=== PATIENT | female | born 1975 | race Caucasian/White ===

== ENCOUNTER 2016-06-27 21:09 | Emergency (ER) | payer MEDICAID ==
[~2016-06-27] VITALS: Ht 167.6 cm; Wt 75.5 kg
[~2016-06-27 21:09] MED LIST: ACYC800T57 PO; PRED20TA PO
[2016-06-27 21:57] VITALS: Ht 167.6 cm; Wt 75.5 kg
[2016-06-28 02:13] LABS: ADD SCAN DIFF NO
[2016-06-28 02:23] LABS: BASOPHIL # 0.1 10^3/ul (0.0-0.1); BASOPHILS % 0.6 % (0.0-2.0); EOSINOPHILS # 0.4 10^3/ul (0.0-0.5); EOSINOPHILS % 4.3 % (0.0-7.0); HEMOGLOBIN 11.7 g/dl (12.0-16.0); LYMPHOCYTES % 31.4 % (15.0-51.0); MEAN CORPUSCULAR HEMOGLOBIN 31.3 pg (29.0-33.0); MEAN CORPUSCULAR HGB CONC 32.5 g/dl (32.0-37.0); MEAN CORPUSCULAR VOLUME 96.3 fl (82.0-101.0); MONOCYTE # 0.7 10^3/ul (0.3-0.9); MONOCYTES % 7.1 % (0.0-11.0); NEUTROPHIL # 5.3 10^3/ul (1.6-7.5); NEUTROPHILS % 56.4 % (39.0-77.0); PLATELET COUNT 304 10^3/UL (140-415); RED BLOOD COUNT 3.74 10^6/ul (4.20-5.40); RED CELL DISTRIBUTION WIDTH 12.4 % (11.5-14.5); WHITE BLOOD COUNT 9.5 10^3/ul (4.8-10.8)
[2016-06-28 02:36] LABS: ADD UMIC YES; URINE BILIRUBIN (Dip) NEGATIVE (NEGATIVE); URINE BLOOD (Dip) 2+ (NEGATIVE); URINE COLOR LT. YELLOW (YELLOW); URINE GLUCOSE (Dip) NEGATIVE (NEGATIVE); URINE KETONES (Dip) TRACE (NEGATIVE); URINE LEUKOCYTE ESTERASE (Dip) NEGATIVE (NEGATIVE); URINE NITRITE (Dip) POSITIVE (NEGATIVE); URINE TOTAL PROTEIN (Dip) NEGATIVE (NEGATIVE); URINE UROBILINOGEN (Dip) 0.2 E.U./dL (0.1-1.0)
[2016-06-28 02:54] LABS: BACTERIA,URINE FEW; SQUAMOUS EPITHELIAL CELL,UR OCCASIONAL
--- NOTE | 2016-06-28 03:38 | RADRPT ---
PROCEDURE: ULTRASOUND OBSTETRICAL CLINICAL INDICATION: 41-year-old female with vaginal bleeding. TECHNIQUE: Multiple sonographic images of the pelvis were obtained. The images were reviewed on a PACS workstation. COMPARISON: None. FINDINGS: There is a single intrauterine gestation. The mean sac diameter is 3.64 cm. There is a pole p resent with a crown-rump length of 2.11 cm. This yields an estimated gestational age of 8 weeks and 6 days. The estimated date of delivery is February 01, 2017. Cardiac activity is present at 168 adrian ts per minute. There is no evidence for free fluid. The ovaries were not visualized bilaterally. N o adnexal masses are noted. IMPRESSION: 1. Single viable intrauterine gestation of approximately 8 weeks 6 days. The estimated date of del beck is February 01, 2017. 2. The ovaries were not visualized. .Martínez Burgos MD, Date Time Electronically viewed and signed by .Martínez Burgos MD, on 06/28/2016 03:38 .M/
--- NOTE | 2016-06-28 03:42 | ERD ---
ER Documentation Chief Complaint Date/Time DATE: 06/28/16 TIME: 03:41 Chief Complaint VAG BLEED X 2 HRS POST INTERCOURSE ABOUT 9 WEEKS PREG HPI 41 year old female presents with CC of vaginal bleeding x 2 hours after having intercourse. States that she is 9 weeks . Denies pelvic pain, low back pain, dysuria, N/V, and fever. She states the bleeding is mild and she has not gone through one pad since onset. She reports Hx of one and one vaginal delivery. No other complaints at this time. She states she has been getting care, and has had no problems with her until now. ROS All systems reviewed and are negative except as per history of present illness. Medications Home Meds Active Scripts Acetaminophen* (Tylenol*) 325 Mg Tablet, 2 TAB PO Q6 Y for PAIN AND OR ELEVATED TEMP, #20 TAB Prov:Jayleen Elliott PA-C 06/28/16 Nitrofurantoin Monohyd Macrocr* (Macrobid*) 100 Mg Capsr, 100 MG PO BID for 5 Days, #10 CAP Prov:Jayleen Elliott PA-C 06/28/16 Acyclovir* (Zovirax*) 800 Mg Tablet, 800 MG PO 5 TIMES DAILY for 7 Days, TAB Prov:MATHEW COPELAND 01/30/15 Prednisone* (Prednisone*) 20 Mg Tab, 60 MG PO DAILY for 5 Days, TAB Prov:MATHEW COPELAND 01/30/15 Allergies Allergies: Coded Allergies: No Known Allergy (Unverified , 06/27/16) PMhx/Soc History of Surgery: Yes ( section x 1) Anesthesia Reaction: No Hx Neurological Disorder: No Hx Respiratory Disorders: No Hx Cardiac Disorders: No Hx Psychiatric Problems: No Hx Miscellaneous Medical Probl: Yes (HTN) Hx Alcohol Use: No Hx Substance Use: No Hx Tobacco Use: No Smoking Status: Never smoker Physical Exam Vitals Physical Exam GENERAL: Non-toxic. No apparent signs of distress. HEENT: Atraumatic. Bilateral eyes are PERRL EOM intact. Normal conjunctiva, no injection. No eyelid or lower eyelid swelling noted. Nose: no nasal discharge. Throat: Oropharynx normal. Tongue pink and moist. No tonsillar swelling or tonsillar exudates. No lymphadenopathy. LUNGS: Clear to auscultation. No accessory muscle use. No wheezing, no crackles. No signs or symptoms of respiratory distress. HEART: Regular rate and rhythm. No murmurs, clicks, rubs or gallops. ABDOMEN: Soft, nontender and nondistended. Bowel sounds positive. No rebound or guarding. No gross peritoneal signs. No Gomes or McBurney point tenderness. No gross masses. BACK: No midline tenderness, no costovertebral tenderness. EXTREMITIES: No peripheral cyanosis or edema. No focal pain or notable trauma. Full range of motion. Good capillary refill. NEURO: The patient moves all 4 extremities with 5/5 strength. Cranial nerves are grossly intact. Normal mental status for age. Good muscle tone. SKIN: There is no apparent rash, petechiae, erythema or swelling. Good skin turgor. Result Diagram: 06/28/16 0202 Results 24 hrs Laboratory Tests Test 06/28/16 02:02 White Blood Count 9.510^3/ul Red Blood Count 3.7410^6/ul Hemoglobin 11.7g/dl Hematocrit 36.0% Mean Corpuscular Volume 96.3fl Mean Corpuscular Hemoglobin 31.3pg Mean Corpuscular Hemoglobin Concent 32.5g/dl Red Cell Distribution Width 12.4% Platelet Count 63367^3/UL Mean Platelet Volume 11.0fl Neutrophils % 56.4% Lymphocytes % 31.4% Monocytes % 7.1% Eosinophils % 4.3% Basophils % 0.6% Nucleated Red Blood Cells % 0.0/100WBC Neutrophils # 5.310^3/ul Lymphocytes # 3.010^3/ul Monocytes # 0.710^3/ul Eosinophils # 0.410^3/ul Basophils # 0.110^3/ul Nucleated Red Blood Cells # 0.010^3/ul Urine Color LT. YELLOW Urine Clarity CLEAR Urine pH 6.0 Urine Specific [place] 1.025 Urine Ketones TRACE Urine Nitrite POSITIVE Urine Bilirubin NEGATIVE Urine Urobilinogen 0.2 E.U./dL Urine Leukocyte Esterase NEGATIVE Urine Microscopic RBC 5-10/HPF Urine Microscopic WBC 5-10/HPF Urine Squamous Epithelial Cells OCCASIONAL Urine Bacteria FEW Urine Hemoglobin 2+ Urine Glucose NEGATIVE% Urine Total Protein NEGATIVE Beta HCG, Quantitative 82881.0mIU/ml .[place] [id number] Radiology Main Line: [phone] DIAGNOSTIC IMAGING REPORT Patient: SATURNINO BARRAGAN : 1975 Age: 41 Sex: F MR #: [id number] DOS: 06/28/16 0142 Ordering MD: Jayleen Elliott PA-C Location: [facility] Room/Bed: PROCEDURE: ULTRASOUND OBSTETRICAL CLINICAL INDICATION: 41-year-old female with vaginal bleeding. TECHNIQUE: Multiple sonographic images of the pelvis were obtained. The images were reviewed on a PACS workstation. COMPARISON: None. FINDINGS: There is a single intrauterine gestation. The mean sac diameter is 3.64 cm. There is a pole present with a crown-rump length of 2.11 cm. This yields an estimated gestational age of 8 weeks and 6 days. The estimated date of delivery is February 01, 2017. Cardiac activity is present at 168 beats per minute. There is no evidence for free fluid. The ovaries were not visualized bilaterally. No adnexal masses are noted. IMPRESSION: 1. Single viable intrauterine gestation of approximately 8 weeks 6 days. The estimated date of delivery is February 01, 2017. 2. The ovaries were not visualized. .Martínez Burgos MD, MD Date Time Electronically viewed and signed by .Martínez Burgos MD, on 06/28/2016 03:38 .M/ CC: Jayleen Elliott PA-C Procedures/MDM CBC: mild anemia of 11.7, likely due to related changes and not true blood loss since patient only reports spotting Beta hCG quant: 91,908, WNL for dates Rh type: O+, rhogam not needed UA: 2+ leukocyte esterase, and positive nitrites. Will treat for UTI, patient is afebrile without any complaint of flank pain and has no CVA tenderness. Pyelonephritis unlikely. US 1st trimester (interpretation by radiologist): IMPRESSION: 1. Single viable intrauterine gestation of approximately 8 weeks 6 days. The estimated date of delivery is February 01, 2017. 2. The ovaries were not visualized. I explained results to patient, IUP seen on US, beta hCG is within normal range per dates, UA is consistent with UTI. Will be treating patient for UTI and threatened , low suspicion for ectopic , miss , molar , pyelonephritis, and severe anemia of blood loss. Patient stable for discharge home and outpatient managment, advised to follow-up with OBGYN in 48 hours for repeat exam and possible w/u. Strict return precautions discussed. Departure Diagnosis: Primary Impression: Vaginal bleeding in patient at less than 20 weeks gestation Additional Impressions: Threatened UTI (urinary tract infection) Urinary tract infection type: site unspecified Hematuria presence: with hematuria Qualified Code: N39.0 - Urinary tract infection with hematuria, site unspecified Condition: Jayleen Richmond PA-C June 28, 2016 03:42
[2016-06-28] MEDS ORDERED: NITR-58 PO (04:22)
[2016-06-28] MEDS ORDERED: ACET325T33 PO (04:22)
== END 2016-06-28 04:30 | disposition home or self-care (01) ==
LOC: FTE 21:09
DX: O20.9 Hemorrhage in early pregnancy, unspecified (principal); O20.0 Threatened abortion; O23.11 Infections of bladder in pregnancy, first trimester; O10.011 Pre-existing essential hypertension complicating pregnancy, first trimester; Z3A.09 9 weeks gestation of pregnancy
CPT/HCPCS: 76801; 81001; 84702; 85025; 86900; 86901; Z7502; 81003

== ENCOUNTER 2017-01-20 09:51 | Inpatient (IN) | payer MEDICAID ==
[~2017-01-20] VITALS: Ht 167.6 cm; Wt 82.0 kg
[~2017-01-20 09:51] MED LIST changes: +ACET325T33 PO; +NITR-58 PO; +OXYTOCIN 30 UNITS/LR 500 ML BAG IV ONE
[2017-01-20 10:24] VITALS: Ht 167.6 cm; Wt 82.0 kg
[2017-01-20] MEDS: LACTATED RINGER'S 1,000 ML IV SCH ×3 (10:24→12:10)
[2017-01-20 10:25] VITALS: BP 136/81; PULSE 67; RESP 20
[2017-01-20] MEDS ORDERED: PREN-17 PO (10:29)
[2017-01-20 10:30] LABS: BASOPHILS % 0.5 % (0.0-2.0); EOSINOPHILS # 0.2 10^3/ul (0.0-0.5); EOSINOPHILS % 2.1 % (0.0-7.0); HEMATOCRIT 31.2 % (37.0-47.0); HEMOGLOBIN 10.7 g/dl (12.0-16.0); LYMPHOCYTES # 1.5 10^3/ul (0.8-2.9); LYMPHOCYTES % 19.3 % (15.0-51.0); MEAN CORPUSCULAR HEMOGLOBIN 31.5 pg (29.0-33.0); MEAN CORPUSCULAR HGB CONC 34.3 g/dl (32.0-37.0); MEAN CORPUSCULAR VOLUME 91.8 fl (82.0-101.0); MEAN PLATELET VOLUME 11.9 fl (7.4-10.4); MONOCYTE # 0.4 10^3/ul (0.3-0.9); MONOCYTES % 5.4 % (0.0-11.0); NEUTROPHIL # 5.7 10^3/ul (1.6-7.5); NEUTROPHILS % 71.7 % (39.0-77.0); PLATELET COUNT 231 10^3/UL (140-415); RED CELL DISTRIBUTION WIDTH 13.2 % (11.5-14.5)
[2017-01-20] MEDS ORDERED: MISOPROSTOL 200 MCG TAB PR PRN ×2 (10:30→17:00)
[2017-01-20] MEDS ORDERED: OXYTOCIN 30 UNITS/LR 500 ML IV PRN ×2 (10:30→17:00)
[2017-01-20] MEDS ORDERED: CEFAZOLIN 2 GM/50 ML (PMX) 50 ML IV SCH (10:30)
[2017-01-20] MEDS ORDERED: OXYTOCIN 30 UNITS/LR 500 ML IV SCH (10:30)
[2017-01-20] MEDS ORDERED: METHYLERGONOVINE 0.2 MG INJ IM PRN ×2 (10:30→17:00)
[2017-01-20] MEDS ORDERED: CARBOPROST 250 MCG INJ IM PRN ×2 (10:30→17:00)
[2017-01-20 10:49] LABS: INR 0.97
[2017-01-20 10:50] LABS: PARTIAL THROMBOPLASTIN TIME 27.4 Sec (25.0-35.0)
[2017-01-20] MEDS ORDERED: PHENYLephrine (100 MCG/ML) 5ML SYG ONE (13:18)
[2017-01-20] MEDS ORDERED: OXYTOCIN 10 UNIT INJ ONE (13:18)
[2017-01-20] MEDS ORDERED: ONDANSETRON 4 MG INJ ONE (13:18)
[2017-01-20] MEDS ORDERED: morphine SULFATE/PF (10 MG/10 ML) INJ ONE (13:18)
[2017-01-20 13:49] LABS: ALBUMIN 3.9 g/dl (3.3-4.9); ALBUMIN/GLOBULIN RATIO 1.14; BILIRUBIN,INDIRECT 0.4 mg/dl (0-1.1); BILIRUBIN,TOTAL 0.4 mg/dl (0.2-1.3); CALCIUM 8.7 mg/dl (8.4-10.2); CREATININE 0.63 mg/dl (0.44-1.00); POTASSIUM 3.9 mmol/L (3.5-5.1); TOTAL PROTEIN 7.3 g/dl (6.1-8.1); URIC ACID 3.6 mg/dl (3.1-7.9)
[2017-01-20] MEDS ORDERED: NALOXONE (0.4 MG/ML) INJ IV PRN (14:30)
[2017-01-20] MEDS ORDERED: ONDANSETRON 4 MG INJ IV PRN (14:30)
[2017-01-20] MEDS ORDERED: DIPHENHYDRAMINE 50 MG INJ IV PRN (14:30)
--- NOTE | 2017-01-20 14:43 | OPR ---
Operative Report Planned Procedure Free Text/Dictation 41 years old female 1 admitted at 39 weeks gestation with a history of previous being prepared to undergo repeat Procedure date Jan 20, 2017 Procedure(s) Repeat Performed by see signature line Cost Estimating Engineer DR NATALIE Melendez Anesthesiologist: JIAN VALADEZ MD Pre-procedure diagnosis 39 weeks history of previous , admitted for repeat Anesthesia Type: spinal Post-Procedure Post-procedure diagnosis Repeat Findings Live baby boy 9 and 9 Estimated Blood Loss: 500 - 600 mls Specimen(s) none Grafts/Implant(s) none Complication(s) none Pt Condition post procedure: stable Procedure Description Under satisfactory spinal anesthesia patient prepped and draped and placed in supine position. Pfannenstiel incision was made. Incision carried through the subcutaneous tissue. Fascia incised to the length of incision. Rectus muscle divided in midline. Peritoneum exposed and entered to a vertical incision. Exploration of abdomen revealed [gravid uterus at term normal-appearing tubes and ovaries.] Bladder flap was developed. Transverse incision was made in the lower segment of the uterus. Amniotic sac ruptured, [clear amniotic fluid noted. ] Live baby boy was delivered from unengaged vertex.Naso oropharyngeal suction was performed. Baby handed to the team for immediate attention. Patient received 20 units of Pitocin. Placenta delivered manually intact. Uterine cavity cleaned with a wet sponge and drainage established. Uterus closed in 2 layers using Monocryl #1 in continuous fashion. Peritoneal cavity irrigated with warm saline. Sponge needle instrument reported to be correct. Abdominal peritoneum closed with 2-0 chromic catgut continuously. Fascia closed with #1 PDS in a continuous fashion. Subcutaneous tissue irrigated with warm saline and approximated with 2-0 chromic catgut skin closed with N sorb. Estimated blood loss [600 cc]. Urine bag containing [200] mL of [clear] urine. Patient tolerated procedure well and transferred to recovery room in good condition. JOVANNI LITTLEJOHN MD Jan 20, 2017 14:43
--- NOTE | 2017-01-20 14:49 | HP ---
Date/Time of Note Date/Time of Note DATE: 01/20/17 TIME: 14:43 OB - History Hx of Present Free Text/Dictation 41 years old female SAB 1 EDC January 27, 2017 admitted to [facility] at 39 weeks gestation with a history of previous section being prepared to undergo a repeat this patient has been under the care of the [facility] and her was not complicated with gestational diabetes -induced hypertension or any other serious medical or surgical condition. Chief Complaint: 39 weeks history of previous Estimated Due Date: Jan 27, 2017 : 4 Para: 2 Spontaneous : 1 Care: Good Care Ultrasounds: Normal mid trimester US Obstetrical Complications: None Medical Complications: None Past Family/Social History * Past Medical, Surgical, Family and Obstetric Histories reviewed from chart. Rubella: immune RPR/VDRL: Negative GBS Status: Negative HBsAG: Negative OB Admission Exam Vital Signs Vital Signs Vital Signs Date Time Temp Pulse Resp B/P Pulse Ox O2 Delivery O2 Flow Rate FiO2 01/20/17 10:25 98.0 67 20 136/81 98 Room Air Physical Exam HEENT: WNL Heart: Rhythm Normal Abdomen: WNL Extremities: Normal Reflexes: Normal Membranes: Intact Heart Rate: 130's Accelerations: Accelerations Present Decelerations: No Decelerations Last 72 hours Lab Results CBC & BMP 01/20/17 10:00 Liver Function Test 01/20/17 10:00 Alanine Aminotransferase (ALT/SGPT) 26 Albumin 3.9 Alkaline Phosphatase 122 H Aspartate Amino Transf (AST/SGOT) 23 Direct Bilirubin 0.00 Total Protein 7.3 OB Assessment/Plan Reason for admission: other (39 weeks history of previous ) Other plan: 41 years old female SAB 1 EDC January 27, 2017 history of previous admitted at 39 weeks gestation to [facility] she is undergoing a repeat she has been counseled regarding the complication of the surgery including bowel bladder injury infection hemorrhage and wound hematoma and she is willing to go ahead with this procedure JOVANNI LITTLEJOHN MD Jan 20, 2017 14:49
[2017-01-20] MEDS: KETOROLAC 30 MG INJ IV PRN ×2 (15:03→21:15)
[2017-01-20] MEDS: morphine 2 MG INJ IV PRN ×2 (16:37→19:55)
[2017-01-20] MEDS: OXYTOCIN 30 UNITS/LR 500 ML IV SCH ×2 (16:51→21:18)
[2017-01-20] MEDS ORDERED: OXYCODONE/ACETAMINOPHEN (5/325) TAB PO PRN (17:00)
[2017-01-20] MEDS ORDERED: HYDROCODONE/APAP (5/325) TAB PO PRN ×2 (17:00)
[2017-01-20] MEDS ORDERED: LANOLIN 7 GM TUBE TOP PRN (17:00)
[2017-01-20] MEDS ORDERED: CEFAZOLIN 1 GM/50 ML (PMX) 50 ML IVPB SCH (17:00)
[2017-01-20 17:25] VITALS: BP 125/79; PULSE 62; RESP 18
[2017-01-20 20:00] VITALS: BP 109/62; PULSE 65; RESP 18
[2017-01-21] VITALS: BP 121/65; PULSE 65; RESP 18
[2017-01-21] MEDS: OXYTOCIN 30 UNITS/LR 500 ML IV SCH ×6 (02:11→20:43)
[2017-01-21 04:00] VITALS: BP 107/62; PULSE 63; RESP 18
[2017-01-21] MEDS ORDERED: LACTATED RINGER'S 1,000 ML IV SCH (06:00)
[2017-01-21] MEDS: KETOROLAC 30 MG INJ IV PRN ×2 (07:23→13:27)
[2017-01-21 08:15] VITALS: BP 116/67; RESP 18
[2017-01-21 09:11] LABS: BASOPHIL # 0.1 10^3/ul (0.0-0.1); BASOPHILS % 0.6 % (0.0-2.0); EOSINOPHILS # 0.2 10^3/ul (0.0-0.5); EOSINOPHILS % 2.6 % (0.0-7.0); HEMATOCRIT 28.4 % (37.0-47.0); HEMOGLOBIN 9.7 g/dl (12.0-16.0); LYMPHOCYTES # 1.3 10^3/ul (0.8-2.9); LYMPHOCYTES % 14.2 % (15.0-51.0); MEAN CORPUSCULAR HEMOGLOBIN 31.4 pg (29.0-33.0); MEAN CORPUSCULAR HGB CONC 34.2 g/dl (32.0-37.0); MEAN CORPUSCULAR VOLUME 91.9 fl (82.0-101.0); MEAN PLATELET VOLUME 11.4 fl (7.4-10.4); MONOCYTE # 0.7 10^3/ul (0.3-0.9); MONOCYTES % 7.2 % (0.0-11.0); NEUTROPHIL # 6.8 10^3/ul (1.6-7.5); NEUTROPHILS % 74.8 % (39.0-77.0); PLATELET COUNT 220 10^3/UL (140-415); RED BLOOD COUNT 3.09 10^6/ul (4.20-5.40); RED CELL DISTRIBUTION WIDTH 13.3 % (11.5-14.5); WHITE BLOOD COUNT 9.1 10^3/ul (4.8-10.8)
[2017-01-21] MEDS: SENNA/DOCUSATE NA (8.6MG/50MG) TAB PO SCH ×2 (10:27→21:32)
--- NOTE | 2017-01-21 10:47 | QN ---
Documentation Comment Post day 1 Vital signs are stable Afebrile Abdomen soft, bowel sounds present, incision dry, lochia moderate, extremities normal, ambulation encouraged JOVANNI LITTLEJOHN MD Jan 21, 2017 10:47
[2017-01-21] MEDS: OXYCODONE/ACETAMINOPHEN (5/325) TAB PO PRN (15:42)
[2017-01-21 16:00] VITALS: BP 122/81; RESP 18
[2017-01-21] MEDS: IBUPROFEN 600 MG TAB PO SCH (18:08)
[2017-01-21 20:00] VITALS: BP 122/74; PULSE 74; RESP 18
[2017-01-21] MEDS ORDERED: INFLUENZA VIRUS VACCINE 0.5 ML SYG IM* ONE (20:00)
[2017-01-22] MEDS: IBUPROFEN 600 MG TAB PO SCH ×4 (00:08→18:00)
[2017-01-22] MEDS: OXYTOCIN 30 UNITS/LR 500 ML IV SCH ×6 (00:43→20:43)
[2017-01-22] MEDS: OXYCODONE/ACETAMINOPHEN (5/325) TAB PO PRN ×3 (01:32→18:34)
[2017-01-22 04:00] VITALS: BP 115/64; PULSE 61; RESP 20
[2017-01-22 08:00] VITALS: BP 97/54; PULSE 65; RESP 16
[2017-01-22] MEDS: SENNA/DOCUSATE NA (8.6MG/50MG) TAB PO SCH ×2 (09:21→20:55)
[2017-01-22 12:00] VITALS: BP_SYST 88; BP_SYST 94; BP_DIAS 52; BP_DIAS 53; PULSE 88; RESP 18
--- NOTE | 2017-01-22 12:43 | QN ---
Documentation Comment Post day 2 Vital signs are stable Afebrile Abdomen soft. Good bowel sounds. No bowel movement, incision dry extremities normal ambulation encouraged enema recommended plan of a.m. discharge discussed . JOVANNI LITTLEJOHN MD Jan 22, 2017 12:43
[2017-01-22] MEDS ORDERED: NA PHOSPHATE/BIPHOS 133 ML ENEMA PR ONE (13:00)
[2017-01-22 16:00] VITALS: BP 122/71; PULSE 63; RESP 18
[2017-01-22 20:15] VITALS: BP 132/82; PULSE 63; RESP 19
[2017-01-23] MEDS: IBUPROFEN 600 MG TAB PO SCH ×5 (00:40→23:46)
[2017-01-23] MEDS: OXYTOCIN 30 UNITS/LR 500 ML IV SCH ×6 (00:43→20:43)
[2017-01-23 04:00] VITALS: BP 117/76; PULSE 66; RESP 18
[2017-01-23 08:20] VITALS: BP 131/72; PULSE 60; RESP 16
[2017-01-23] MEDS: SENNA/DOCUSATE NA (8.6MG/50MG) TAB PO SCH ×2 (08:23→21:00)
[2017-01-23] MEDS: OXYCODONE/ACETAMINOPHEN (5/325) TAB PO PRN (08:31)
[2017-01-23] MEDS ORDERED: DIPHTH/TET/ACEL PERTUSS (ADULT) 0.5 ML VIAL IM* ONE (09:00)
--- NOTE | 2017-01-23 10:03 | DS ---
Date/Time of Note Date/Time of Note DATE: 01/23/17 TIME: 10:02 Discharge Summary Admission/Discharge Info Admit Date/Time Jan 20, 2017 at 09:51 Discharge Date/Time January 23, 2017 at 10 AM Discharge Diagnosis Date 3 post repeat Patient Condition: Good Procedures Repeat Hx of Present Illness Term history of previous Hospital Course [facility] recovery uneventful Home Meds Active Scripts Acetaminophen* (Tylenol*) 325 Mg Tablet, 2 TAB PO Q6 Y for PAIN AND OR ELEVATED TEMP, #20 TAB Prov:Jayleen Elliott PA-C 06/28/16 Nitrofurantoin Monohyd Macrocr* (Macrobid*) 100 Mg Capsr, 100 MG PO BID for 5 Days, #10 CAP Prov:Jayleen Elliott PA-C 06/28/16 Acyclovir* (Zovirax*) 800 Mg Tablet, 800 MG PO 5 TIMES DAILY for 7 Days, TAB Prov:MATHEW COPELAND 01/30/15 Prednisone* (Prednisone*) 20 Mg Tab, 60 MG PO DAILY for 5 Days, TAB Prov:MATHEW COPELAND 01/30/15 Reported Medications Vit No.78/Iron/FA (Prenatabs FA Tablet) 1 Each Tablet, 1 EACH PO, TAB 01/20/17 Follow-up Plan instruction given recommended to make appointment to be seen at the clinic in 1 week Primary Care Provider Care Physician No Primary Time spent on discharge: < 30 minutes JOVANNI LITTLEJOHN MD Jan 23, 2017 10:03
[2017-01-23 16:03] VITALS: BP 128/80; PULSE 62; RESP 17
[2017-01-23 19:30] VITALS: BP 136/88; PULSE 68; RESP 18
[2017-01-23] MEDS ORDERED: LACTATED RINGER'S 1,000 ML IV ONE ×2 (19:30)
--- NOTE | 2017-01-23 19:35 | OPPN ---
Date/Time of Note Date/Time of Note DATE: 01/23/17 TIME: 19:24 Event Note Patient is a 41 yr old female S/P Repeat , s/p Spinal anesthesia done on 12/03/16, Patient has been complaining of headache which started shortly after and continued on since, it was getting worse when she tried to stand or stil, associated with nausea and vomiting, no photophobia noted. Vital signs were normal and patient reported to be afebrile. Surgery was uneventful and post op was also uneventful but headache stayed on. Her headache is getting worse today even though there was plan to discharge her home. No Paresthesia or weakness on the extremities and no other neurological symptoms. Assessment: Post Dural Punctural Headache Plan: Epidural Blood Patch Patient was explained the option of Epidural Blood patch and pros and cons were explained to here and her questions were all answered and she consented to be getting the Epidural Blood Patch. Epidural blood patch was performed under sterile condition, Epidural space was located using a Tuohy needle 16G with loss of resistance using sterile saline, 20 CC of her own blood was drawn under sterile condition and slowly injected Epidural, patient tolerated the procedure and he headache significantly improved after the Epidural blood patch was done. Her vital signs were stable before and after the procedure, 1 liter of LR was given as bolus after procedure and she was recommended to take caffeinated drinks and hydrate as much as she can. She will be lay supine at least for 2 hrs post procedure. She can be discharged tomorrow if there will be no other issues. RUBY COLON MD Jan 23, 2017 19:35
[2017-01-24] VITALS: BP 106/61; PULSE 66; RESP 19
[2017-01-24] MEDS: OXYTOCIN 30 UNITS/LR 500 ML IV SCH ×2 (00:43→04:43)
[2017-01-24 04:00] VITALS: BP 113/73; PULSE 63; RESP 19
[2017-01-24] MEDS: IBUPROFEN 600 MG TAB PO SCH ×2 (05:40→11:56)
[2017-01-24] MEDS: SENNA/DOCUSATE NA (8.6MG/50MG) TAB PO SCH (09:00)
--- NOTE | 2017-01-24 12:28 | DS ---
Date/Time of Note Date/Time of Note DATE: 01/24/17 TIME: 12:25 Discharge Summary Admission/Discharge Info Admit Date/Time Jan 20, 2017 at 09:51 Discharge Date/Time Discharge Diagnosis Date 3 post repeat Hx of Present Illness Term history of previous Hospital Course [facility] recovery uneventful Home Meds Active Scripts Acyclovir* (Zovirax*) 800 Mg Tablet, 800 MG PO 5 TIMES DAILY for 7 Days, TAB Prov:MATHEW COPELAND 01/30/15 Reported Medications Vit No.78/Iron/FA (Prenatabs FA Tablet) 1 Each Tablet, 1 EACH PO, TAB 01/20/17 Discontinued Scripts Acetaminophen* (Tylenol*) 325 Mg Tablet, 2 TAB PO Q6 Y for PAIN AND OR ELEVATED TEMP, #20 TAB Prov:Jayleen Elliott PA-C 06/28/16 Nitrofurantoin Monohyd Macrocr* (Macrobid*) 100 Mg Capsr, 100 MG PO BID for 5 Days, #10 CAP Prov:Jayleen Elliott PA-C 06/28/16 Prednisone* (Prednisone*) 20 Mg Tab, 60 MG PO DAILY for 5 Days, TAB Prov:MATHEW COPELAND 01/30/15 Follow-up Plan Patient was originally discharged yesterday with a follow-up instruction to be seen at the clinic in 1 week but due to headache which it seemed to be related to her spinal anesthesia she has stayed 1 more night, today he feels a lot better no more headache, she was discharged home with a follow-up instruction. Primary Care Provider Care Physician No Primary Time spent on discharge: < 30 minutes JOVANNI LITTLEJOHN MD Jan 24, 2017 12:28
== END 2017-01-24 15:31 | disposition home or self-care (01) | DRG 766 ==
LOC: L-D 09:51 → PP1 17:13
PROVIDERS: ADMIT Obstetrics & Gynecology; ATTEND Obstetrics & Gynecology
PROC: 3E033VJ Introduction of Other Hormone into Peripheral Vein, Percutaneous Approach (ICD-10-PCS; 2017-01-20)
PROC: 10D00Z1 Extraction of Products of Conception, Low, Open Approach (ICD-10-PCS; principal; 2017-01-20 12:30)
DX: O34.211 Maternal care for low transverse scar from previous cesarean delivery (principal); E66.01 Morbid (severe) obesity due to excess calories; Z37.0 Single live birth; O99.214 Obesity complicating childbirth; Z68.29 Body mass index [BMI] 29.0-29.9, adult; Z3A.39 39 weeks gestation of pregnancy
CPT/HCPCS: 80053; 84560; 85025; 85610; 85730; 86592; 86850; 86900; 86901; 90686; 90715; 99464; J0690; J1200; J1885; J2270; J2274; J2370; J2405; J2590; J7120